=== PATIENT | female | born 1985 | race Caucasian/White ===

== ENCOUNTER 2020-08-12 17:57 | Emergency (ER) | payer OTHER ==
[~2020-08-12] VITALS: Ht 170.2 cm; Wt 105.2 kg
--- NOTE | 2020-08-12 17:57 | NUR ---
PT BIBRA 78 C/O WITNESSED SEIZURE EPISODE LASTED 3 MINS PER EMS. 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 WILL CONTINUE TO MONITOR.
--- NOTE | 2020-08-12 18:00 | NUR ---
AT BEDSIDE FOR EVAL.
[2020-08-12] MEDS ORDERED: LEVE1000 PO (18:04)
[2020-08-12] MEDS ORDERED: LOSA25TA27 PO (18:04)
[2020-08-12] MEDS ORDERED: ACETAMINOPHEN ES 500 MG TABLET ONE (18:18)
--- NOTE | 2020-08-12 18:19 | NUR ---
URINE SPECIMEN COLLECTED AND SENT TO LAB.
[2020-08-12] MEDS ORDERED: ACETAMINOPHEN ES 500 MG TABLET PO ONE (18:30)
[2020-08-12 19:26] LABS: CALCIUM, SERUM 9.1 mg/dL (8.5-10.1); CREATININE 0.8 mg/dL (0.6-1.3); POTASSIUM 3.8 mmol/L (3.5-5.1)
[2020-08-12 20:03] LABS: BASOPHILS # (AUTO) 0.1 /CMM (0.0-0.2); BASOPHILS % (AUTO) 0.3 % (0.0-2.0); EOSINOPHILS % (AUTO) 0.5 % (0.0-6.0); HEMATOCRIT 39 % (33-45); HEMOGLOBIN 12.9 g/dL (11.5-14.8); LYMPHOCYTES % (AUTO) 12.5 % (20.0-44.0); MEAN CORPUSCULAR HGB CONC 33 g/dl (31.0-36.0); MEAN CORPUSCULAR VOLUME 84 fL (82-100); MONOCYTES # (AUTO) 0.8 /CMM (0.1-1.30); MONOCYTES % (AUTO) 4.8 % (2.0-12.0); NEUTROPHILS # (AUTO) 12.8 /CMM (1.8-8.9); NEUTROPHILS % (AUTO) 81.9 % (43.0-81.0); PLATELET COUNT (AUTO) 375 /CMM (150-450); RED BLOOD CELL COUNT(AUTO) 4.65 MIL/uL (4.0-5.2); WHITE BLOOD COUNT (AUTO) 15.7 K/uL (4.3-11.0)
--- NOTE | 2020-08-12 20:20 | NUR ---
pt cleared for discharger per dr. frey. Patient discharged to home in stable condition. Written and verbal after care instructions given. Patient verbalizes understanding of instruction. ambulatory with a steady gait. instructed not to drive. pt verbalized understanding.
[2020-08-12 20:21] VITALS: BP 126/76
== END 2020-08-12 20:22 | disposition home or self-care (01) ==
LOC: ER 18:04
DX: R56.9 Unspecified convulsions (principal); R73.9 Hyperglycemia, unspecified; I10 Essential (primary) hypertension; Z88.1 Allergy status to other antibiotic agents; Z79.899 Other long term (current) drug therapy
CPT/HCPCS: 36415; 80048-TC; 84703-TC; 85025-TC